=== PATIENT | male | born 1985 | race Hispanic/Latino ===

== ENCOUNTER 2019-06-07 18:20 | Emergency (ER) | payer SELFPAY ==
[2019-06-07] MEDS ORDERED: Ketorolac Tromethamine 30 MG/ML VIAL ONE (18:39)
[2019-06-07] MEDS ORDERED: Sodium Chloride 0.9% 1,000 ML ONE (18:39)
[2019-06-07 18:56] LABS: #Basophils 0.1 thou/uL (0.0-0.2); #Eosinphils 0.1 thou/uL (0.0-0.7); #Lymphocytes 1.3 thou/uL (1.20-3.40); #Monocytes 0.4 thou/uL (0.11-0.59); #Neutrophils 4.2 thou/uL (1.40-6.50); %Basophils 0.9 % (0.0-1.0); %Eosinophils 1.2 % (0.0-10.0); %Lymphocytes 21.1 % (21.0-51.0); %Monocytes 7.1 % (0.0-10.0); %Neutrophils 69.7 % (42.0-75.0); Hemoglobin 17.1 g/dL (14.0-18.0); Mean Corpuscular Hemoglobin 27.5 pg (27.0-31.0); Mean Corpuscular Volume 83.4 fL (78.0-98.0); Mean Platelet Volume 8.2 fL (7.4-10.4); Platelet Count 191 thou/uL (130-400); RBC Distribution Width 11.1 % (11.5-14.5); Red Blood Cell (RBC) Count 6.22 mill/uL (4.70-6.10)
[2019-06-07 19:10] LABS: ALT (SGPT) 30 U/L (8-55); AST (SGOT) 17 U/L (5-34); Albumin 4.6 g/dL (3.5-5.0); Alkaline Phosphatase 106 U/L (40-150); Anion Gap 17 mmol/L (10-20); BUN (Urea Nitrogen) 16 mg/dL (8.9-20.6); Bilirubin, Total 0.5 mg/dL (0.2-1.2); Calc. Creatinine Clearance 0 mL/min (70-130); Calcium 9.8 mg/dL (7.8-10.44); Carbon Dioxide 24 mmol/L (22-29); Chloride 105 mmol/L (98-107); Estimated GFR-MDRD 82; Glucose 115 mg/dL (70-105); Potassium 3.7 mmol/L (3.5-5.1); Protein, Total 7.6 g/dL (6.0-8.3); Sodium 142 mmol/L (136-145)
--- NOTE | 2019-06-07 19:44 | CT ---
CT ABDOMEN AND PELVIS WITHOUT CONTRAST STONE PROTOCOL 06/07/19 HISTORY: Pain. COMPARISON: CT 05/25/19. FINDINGS: Lung bases are clear. No pericardial effusion. Mild left hydroureteronephrosis due to a partially obstructing calculus distal left ureter measuring at 6 mm in length x 3 mm in width with minimal distal migration from the comparison examination now w ithin 8 mm at the ureterovesicular junction. Previously 1.5 cm. No dilated loops of large or small bowel. No superimposed appendicitis. No other calculus within the renal collecting systems. IMPRESSION: Minimal distal migration of the left distal ureteral calculus with low grade left hydroureteronephros is. POS: HOME
[2019-06-07 20:01] LABS: Bilirubin Negative (Negative); Blood, Urine Large (Negative); Clarity Clear (Clear); Glucose, Urine (Dipstick) Negative (Negative); Leukocyte Negative (Negative); Nitrite Negative (Negative); Protein, Urine (Dipstick) Negative (Neg-Trace); Urobilinogen 0.2 mg/dL (Less than 2)
== END 2019-06-07 20:37 | disposition home or self-care (01) ==
LOC: NAV ERS 18:20
DX: N13.2 Hydronephrosis with renal and ureteral calculous obstruction (principal)
CPT/HCPCS: 74176; 80053; 81003; 81015; 85025; 96361; 96374; J1885; J7050

== ENCOUNTER 2019-06-12 12:44 | Emergency (ER) | payer SELFPAY ==
[2019-06-12] MEDS ORDERED: Ketorolac Tromethamine 60 MG/2 ML VIAL ONE (13:14)
[2019-06-12] MEDS ORDERED: HYDROcodone/Acetaminophen 10/325 mg Tablet ONE (13:14)
--- NOTE | 2019-06-12 14:25 | ULT ---
US Renal Bilateral STANDARD History: Hydronephrosis Comparison: CT Stone protocol June 07, 2019 Findings: Real-time grayscale and color evaluation of the kidneys and urinary bladder was performed. Right kidney measures 11.2 x 4.5 x 4.9 cm and the left kidney measures 11 x 6.3 x 5.2 cm. Prevoid uri nary bladder volume is 22 mL in post void residual. Only the right ureteral jet is seen within the urinary bladder. Low-grade left hydronephrosis. Impression: Mild left hydronephrosis with nonvisualization of the left ureteral jet suggesting contin ued partial obstruction of the distal left ureter.
== END 2019-06-12 14:55 | disposition home or self-care (01) ==
LOC: NAV ERS 12:44
DX: N13.2 Hydronephrosis with renal and ureteral calculous obstruction (principal); Z79.891 Long term (current) use of opiate analgesic
CPT/HCPCS: 76770; 96372; J1885

== ENCOUNTER 2022-02-24 18:24 | Emergency (ER) | payer SELFPAY ==
[2022-02-24] MEDS ORDERED: traMADol HCl 50 MG TAB ONE (19:19)
[2022-02-24] MEDS ORDERED: Bacitracin 1 PK ONE ×2 (19:19→19:29)
[2022-02-24] MEDS ORDERED: Boostrix 0.5 ML (Tdap) VIAL ONE (19:48)
== END 2022-02-24 20:10 | disposition home or self-care (01) ==
LOC: NAV ERS 18:24
DX: S10.91XA Abrasion of unspecified part of neck, initial encounter (principal); S00.81XA Abrasion of other part of head, initial encounter; S00.511A Abrasion of lip, initial encounter; W22.8XXA Striking against or struck by other objects, initial encounter
CPT/HCPCS: 90471; 90715